=== PATIENT | female | born 2005 | race Caucasian/White ===

== ENCOUNTER 2023-02-07 09:22 | Emergency (ER) | payer OTHER, SELFPAY ==
--- NOTE | 2023-02-07 09:29 | ED.URI ---
HPI - URI/Sore Throat General Chief Complaint: Upper Respiratory Infection Stated Complaint: sorethroat Time Seen by Provider: 02/07/23 09:29 Source: patient, RN notes reviewed and old records reviewed Mode of arrival: ambulatory Limitations: no limitations History of Present Illness HPI Narrative: 17-year-old female presents to [facility] with complaints of sore throat, fever\chills, cough and myalgia this started 2 days ago. patient denies dizziness, chest pain, shortness of breath, weakness, vomiting. MD elicited complaint: fever, cough and sore throat Onset (ago): day(s) (2) Related Data Home Medications Medication Instructions Recorded Confirmed sertraline 50 mg tablet 50 mg PO DIRECTED 02/07/23 02/07/23 Allergies Allergy/AdvReac Type Severity Reaction Status Date / Time Penicillins Allergy Intermediate Hives / Verified 02/07/23 09:42 Red Face Review of Systems Constitutional: Constitutional: Reports as per HPI, Reports body ache(s), Reports chills and Reports fever(s) Eyes: Eyes: Reports as per HPI ENT: Reports system reviewed and no additional complaints, except as documented, Denies vertigo, Denies dizziness, Denies otalgia and Reports sore throat Cardiovascular: Cardiovascular: Reports no additional cardiovascular complaints Respiratory: Respiratory: Reports as per HPI, Reports cough, Denies pain with cough and Denies dyspnea Neurologic: Reports system reviewed and no additional complaints, except as documented PMFSH Comments At the time of my signature, I reviewed and agree with the nursing past medical, surgical, social, and family history. There is no relevant family history pertinent to the patient complaint. Exam Const: General: cooperative, healthy appearing, no acute distress and well nourished Nutritional Appearance: well nourished Orientation/consciousness: patient oriented x3 Limitations: no limitations HENMT: Head: normal to inspection and normocephalic Ears: external ears normal, TM's normal bilaterally, mastoids normal and Abnormal EAC present Face/Nose/Sinus: normal facial exam Face and sinus: normal facial exam Mouth: Yes Normal oral and palatal mucosa present, Yes oropharynx normal and Yes moist mucous membranes Throat: uvula midline, abnormal tonsil bilateral erythema, posterior oropharynx abnormal erythema and no uvular edema Eyes: General: appearance normal, both eyes and all related structures Sclera: sclerae normal Pupils: Equal, round and reactive pupils present Resp: Effort & Inspection: normal respiratory effort, able to speak in complete sentences, no audible wheezes, no cough, no respiratory distress and no retractions Auscultation: clear to auscultation bilaterally, no crackles, no rales, no rhonchi and no wheezes Cardio: Rate: regular rate Rhythm: regular rhythm Skin: General skin exam: normal color and no rashes or lesions noted Neuro: General: patient oriented x3 Cranial nerves: Yes Equal, round and reactive pupils present Psych: Appearance: grossly normal Course Course Emergency Course: Some parts of this dictation were generated by voice recognition software and may contain typographical and/or grammatical inaccuracies. Level of Care: Express Care Visit Vital Signs Vital signs: Reviewed MDM - URI/Sore Throat MDM Narrative Medical decision making narrative: patient with complaint of cough, sore throat, fever/chills, myalgia for 2 days. Patient's strep test in clinic today was negative. Patient's COVID/influenza test negative. will treat for viral illness and instructed on [id number] treatment. patient resting comfortably without signs or symptoms of acute distress, nontoxic appearing, vital signs stable. Patient appropriate for discharge home with instructions on close monitoring, follow up, when to seek emergency care. Discharge instructions reviewed with patient, as well as provided in writing per nursing staff. The instr
[2023-02-07 09:40] VITALS: BP 106/67; PULSE 114; RESP 18; TEMP 36.6; O2SAT 98
== END 2023-02-07 10:23 | disposition home or self-care (01) ==
PROVIDERS: Emergency Provider Registered Nurse; PCP Pediatrics
DX: J06.9 Acute upper respiratory infection, unspecified (principal); Z20.822 Contact with and (suspected) exposure to COVID-19; F32.9 Major depressive disorder, single episode, unspecified
CPT/HCPCS: 87081; 87426; 87804; 87880; 99213; C9803; G0463

== ENCOUNTER 2023-07-21 10:53 | Emergency (ER) | payer OTHER, SELFPAY ==
[2023-07-21 11:06] VITALS: BP 113/72; PULSE 130; RESP 16; TEMP 36.8; O2SAT 100
[2023-07-21 11:15] VITALS: O2SAT 100
[2023-07-21] MEDS: SODIUM CHLORIDE 0.9% IV 1,000 ML 999 ML IV CONT (11:42)
[2023-07-21 11:43] VITALS: BP 122/69; PULSE 103; RESP 19; O2SAT 100
--- NOTE | 2023-07-21 11:49 | ED.GENADULT ---
HPI - General Adult General Chief complaint: Upper Respiratory Infection Stated complaint: Covid pos, sore troath Time Seen by Provider: 07/21/23 11:28 History of Present Illness HPI narrative: Patient is a 18-year-old female who presents the emergency department this morning complaining of a sore throat. Patient states the symptoms started a few days ago and she did test positive for COVID 2 days ago. Patient has been taking Tylenol for the sore throat, but states that since that hurts to swallow she has not really been drinking or eating much. She denies any fevers or chills at home, admits to mild nausea, denies any vomiting episodes, denies any dysuria or hematuria, and denies any abdominal pain. Patient also denies any sick contacts at home. No additional symptoms or concerns at this time. Related Data Home Medications Medication Instructions Recorded Confirmed sertraline 50 mg tablet 50 mg PO DIRECTED 02/07/23 02/07/23 Allergies Allergy/AdvReac Type Severity Reaction Status Date / Time Penicillins Allergy Intermediate Hives / Verified 02/07/23 09:42 Red Face Review of Systems Review of Systems: All systems are reviewed and are negative unless stated otherwise in the HPI. Exam Narrative: General: Alert, awake, afebrile, in no acute distress. HEENT: PERRL, no rhinorrhea, no post nasal drip, 3+ tonsillar swelling and erythema with exudate. Neck: Trachea midline, no JVD, tender anterior lymphadenopathy. Cardiovascular: Tachycardic with regular rhythm, no murmurs, rubs or gallops, no peripheral edema. Respiratory: Clear to auscultation bilaterally, no tachypnea, no wheezing, no rhonchi, no rubs, no respiratory distress. Abdomen: Soft, nontender, nondistended, no rebound, no guarding, no peritoneal signs. Musculoskeletal: No joint swelling or deformity, normal muscle tone. Skin: No rashes or petechia, no signs of infection. Neurological: Alert and oriented to person, place, and time. Follows all commands. No focal deficits, speech is clear and fluent. Course Vital Signs Vital signs: Vital Signs Temperature 98.3 F 07/21/23 11:06 Pulse Rate 130 H 07/21/23 11:06 Respiratory Rate 16 07/21/23 11:06 Blood Pressure 113/72 07/21/23 11:06 Pulse Oximetry 100 07/21/23 11:06 Oxygen Delivery Room Air 07/21/23 11:06 Temperature 98.3 F 07/21/23 11:06 Pulse Rate 103 H 07/21/23 11:43 Respiratory Rate 19 07/21/23 11:43 Blood Pressure 122/69 07/21/23 11:43 Pulse Oximetry 100 07/21/23 11:43 Oxygen Delivery Room Air 07/21/23 11:15 Medical Decision Making MDM Narrative Medical decision making narrative: The patient was evaluated by myself in the emergency department. History is obtained from patient who is an independent historian and physical exam was performed. External medical records were reviewed at this time. IV was established and pertinent tests were ordered. Vital signs were reviewed and patient was noted to be tachycardic with a heart rate of 130. Patient was administered 1 L IV fluid bolus with normal saline, 50 mg of IV Toradol and 4 mg of IV Zofran. Repeat vitals revealed a heart rate of 97 beats per after IV fluid bolus. Strep swabs were obtained and noted to be negative. Differential diagnosis considerations include strep throat, tonsillitis, viral pharyngitis and COVID infection. Comorbidities impacting this visit include recent COVID infection. I have evaluated and discussed social determinants of health with the patient that could potentially impact subsequent diagnosis and treatment plans. On repeat assessment of the patient, reevaluation revealed that the patient is doing well and is in no acute distress. Patient symptoms have improved since she arrived to our emergency department. Repeat vital signs were all reviewed and noted to be stable. Differential diagnosis and treatment plan were discussed with the patient at bedside. Patient agrees
[2023-07-21 11:55] LABS: Strep Group A RT-PCR NOT DETECTED (Negative)
[2023-07-21] MEDS: ONDANSETRON INJ 4 MG/2 ML VIAL IV PUSH (12:21)
[2023-07-21] MEDS: KETOROLAC 15 MG/ML VIAL (*BKC) IV PUSH (12:21)
[2023-07-21 12:26] VITALS: BP 121/81; PULSE 91; RESP 16; O2SAT 100
== END 2023-07-21 12:35 | disposition home or self-care (01) ==
PROVIDERS: Emergency Provider Emergency Medicine; PCP Pediatrics
DX: U07.1 COVID-19 (principal); J02.9 Acute pharyngitis, unspecified
CPT/HCPCS: 87651; 96361; 96374; 96375; 99284; J1885; J2405; J7030

== ENCOUNTER 2023-07-23 00:34 | Emergency (ER) | payer OTHER, SELFPAY ==
[2023-07-23] VITALS (9 sets, daily range): BP systolic 106–117; BP diastolic 71–86; PULSE 100–120; RESP 15–17; TEMP 37.1–37.6; O2SAT 97–100
--- NOTE | 2023-07-23 06:12 | ED.URI ---
HPI - URI/Sore Throat General Chief Complaint: Upper Respiratory Infection Stated Complaint: Covid positive, can't swallow, can't eat or drink Time Seen by Provider: 07/23/23 04:17 Source: patient and family Limitations: no limitations History of Present Illness HPI Narrative: Patient is a 18-year-old female presents to the emergency department complaining swollen tonsils. Patient states she has she has been experiencing sore throat for the past week has been progressively getting worse, is now having lot of difficulty tolerating any of her secretions and is feeling she is getting dehydrated and whenever she gets something in her stomach she gets nauseous and vomits. Patient is to be on antibiotics with clindamycin for the past 2 days. Patient admits to having multiple negative strep swabs. Patient admits to fevers over the past 4 days taking [id number] medications for it. Patient denies being on any steroids. Patient denies any chest pain or difficulty breathing or ear pain or difficulty opening her mouth. Related Data Home Medications Medication Instructions Recorded Confirmed sertraline 50 mg tablet 50 mg PO DIRECTED 02/07/23 02/07/23 Allergies Allergy/AdvReac Type Severity Reaction Status Date / Time Penicillins Allergy Intermediate Hives / Verified 07/23/23 03:12 Red Face Review of Systems Review of Systems: A 10 system review of systems was completed on the patient and is negative except for what is stated in the HPI. Nursing and ancillary documentation was reviewed. PMFSH Comments At time of signature, I have reviewed and agree with nursing past medical, surgical, social and family history unless otherwise noted. Please see the nursing chart for further information. There is no relevant family history pertinent to the presenting complaint. Exam Narrative: CONST: No acute distress. Well nourished. HENMT: Head is normocephalic and atraumatic. Moist mucous membranes. No posterior oropharynx erythema. Bilateral tonsils are grade 3 with exudates and erythema. Uvula is midline. EYES: No conjunctival icterus, injection, or pallor. PERRL. NECK: No meningeal signs. Scant shotty bilateral superficial anterior cervical lymphadenopathy. RESP: Able to speak in full sentences. Normal respiratory effort. CTAB. CARDIO: Regular rate. Regular rhythm. 2+ DP and radial pulses bilaterally. GI: Nondistended. No tenderness to palpation. Soft. : No CVA tenderness to palpation. SKIN: No rashes or lesions noted on exposed skin. NEURO: Oriented x3. Moves all extremities. EXTREM/MSK/BACK: No pedal edema. PSYCH: Normal affect. Course Vital Signs Vital signs: Vital Signs Temperature 98.7 F 07/23/23 00:48 Pulse Rate 115 H 07/23/23 00:48 Respiratory Rate 15 07/23/23 00:48 Blood Pressure 116/71 07/23/23 00:48 Pulse Oximetry 97 07/23/23 00:48 Oxygen Delivery Room Air 07/23/23 00:48 Temperature 99.7 F H 07/23/23 05:17 Pulse Rate 116 H 07/23/23 05:14 Respiratory Rate 17 07/23/23 05:14 Blood Pressure 107/77 07/23/23 05:14 Pulse Oximetry 99 07/23/23 05:14 Oxygen Delivery Room Air 07/23/23 03:10 MDM - URI/Sore Throat MDM Narrative Medical decision making narrative: Patient presents with the above complaint. Initial vitals are remarkable for tachycardia. Physical examination as noted above. Plan discussed: Laboratory analysis, Toradol, IV fluids, Zofran, dexamethasone, clindamycin. Differential diagnosis includes is not limited to strep throat, mononucleosis, pharyngitis. Patient was reassessed at the bedside. Patient is in no acute distress. Patient sleeping comfortably, vital signs stable. The patient has remained stable throughout the entire ED visit. Patient and mother informed of results and plan of care. Patient notes that she is feeling better. Patient's voice sounds last month old and reassessment of the tonsils reveals less swelling. Instructed
[2023-07-23] MEDS: SODIUM CHLORIDE 0.9% IV 1,000 ML 999 ML IV CONT (06:42)
[2023-07-23] MEDS: dexAMETHasone SOD PHOS INJ 10 MG/ML 1 ML VIAL IV PUSH (06:43)
[2023-07-23] MEDS: KETOROLAC 15 MG/ML VIAL (*BKC) IV PUSH (06:43)
[2023-07-23] MEDS: ONDANSETRON INJ 4 MG/2 ML VIAL IV PUSH (06:43)
[2023-07-23] MEDS: CLINDAMYCIN 900 MG/D5W 50 ML 900 MG/50 ML PIGGYBACK 50 MG IVPB (06:48)
[2023-07-23 06:51] LABS: Basophils Absolute Auto 0.2 K/mm3 (0.0-0.1); Basophils Percent Auto 0.9 % (0.2-1.2); Hematocrit 38.4 % (37.0-47.0); Hemoglobin 12.8 g/dL (12.0-15.0); Immature Granulocyte Absolute 0.12 K/mm3 (0.00-0.031); Immature Granulocyte Percent A 0.6 % (0-0.5); Lymphocytes Percent Auto 57.3 % (18.3-44.2); Mean Corpuscular HGB Conc 33.3 g/dl (32-36); Mean Corpuscular Hemoglobin 30.5 pg (26-34); Mean Corpuscular Volume 91.4 fl (80-100); Mean Platelet Volume 10.4 fl (7.4-10.4); Monocytes Absolute Auto 2.4 K/mm3 (0.1-0.6); Monocytes Percent Auto 12.7 % (2.6-8.5); Neutrophils Absolute Auto 5.4 K/mm3 (1.3-6.7); Neutrophils Percent Auto 28.5 % (45.5-73.1); Platelet Count Result 159 k/mm3 (150-375); Red Cell Distribution Width 13.2 % (11.5-14.5); White Blood Count 18.9 K/mm3 (4.5-10.0)
[2023-07-23 07:04] LABS: Alanine Aminotransferase 650 U/L (6-35); Albumin Level 4.3 g/dL (3.5-5.1); Alkaline Phosphatase 235 U/L (38-126); Anion Gap 14 mmol/L (4-12); Aspartate Amino Transferase 537 U/L (14-36); Bilirubin,Total 0.9 mg/dL (0.2-1.3); Blood Urea Nitrogen 10 mg/dL (7-17); Carbon Dioxide 20 mmol/L (22-30); Chloride 103 mmol/L (98-107); Estimated CRCL calculation 101 ml/min; Estimated Glomerular Filt Rate > 60; Glucose 86 mg/dL (65-110); Potassium 4.1 mmol/L (3.4-5.0); Sodium 137 mmol/L (137-145)
[2023-07-23 07:12] LABS: Monoscreen Positive (Negative); Negative Monotest Control Negative (Negative); Positive Monotest Control Positive (Positive)
[2023-07-23 07:15] LABS: Strep Group A RT-PCR NOT DETECTED (Negative)
[2023-07-23 07:20] LABS: SPREG INTERNAL CONTROL Positive; Serum Qual hCG Negative
[2023-07-23 07:32] LABS: Atypical Lymphocytes Present; Platelet Estimate Adequate (Adequate); Schistocytes None Seen; Smudge Cells MANY
== END 2023-07-23 09:45 | disposition home or self-care (01) ==
PROVIDERS: Emergency Provider Student in an Organized Health Care Education/Training Program; PCP Pediatrics
DX: B27.90 Infectious mononucleosis, unspecified without complication (principal); J03.80 Acute tonsillitis due to other specified organisms
CPT/HCPCS: 36415; 80053; 83735; 84703; 85025; 86308; 87651; 96365; 96375; 99284; J1100; J1885; J2405; J7030